=== PATIENT | male | born 1965 | race Caucasian/White ===

== ENCOUNTER 2019-03-05 19:11 | Emergency (ER) | payer OTHER ==
[2019-03-05 19:33] VITALS: BP 132/82
--- NOTE | 2019-03-05 19:41 | UC ---
Abdominal Pain Male HPI - HPI Summary HPI Summary: 53-year-old male presents with 2 week history of right thoracic back pain. States the pain initially felt like an insect bite but is progressively been worsening. On 03/01/2019 states the pain started radiating straight through to his right upper abdomen. States the pain worsens with movement. States it is especially bad when he is riding in the car and hits a pot hole or bump in the road. He has taken ibuprofen a couple of occasions with some improvement in the pain. He does note he has had an occasional nonproductive cough. Denies fever, chills, rash, diaphoresis, chest pain, shortness of breath, nausea, vomiting, diarrhea, dysuria, frequency, urgency, or hematuria. - History of Current Complaint Chief Complaint: UCAbdominalPain Stated Complaint: RIGHT SIDED ABD/BACK PAIN Hx Obtained From: Patient Pain Intensity: 8 - Allergies/Home Medications Allergies/Adverse Reactions: Allergies Allergy/AdvReac Type Severity Reaction Status Date / Time No Known Allergies Allergy Verified 03/05/19 19:33 PMH/Surg Hx/FS Hx/Imm Hx Previously Healthy: Yes - Denies significant PMH - Surgical History Surgical History: Yes Surgery Procedure, Year, and Place: t/a as child - Family History Known Family History: Positive: Non-Contributory - Social History Occupation: Employed Full-time Lives: With Family Alcohol Use: None Substance Use Type: None Smoking Status (MU): Former Smoker Review of Systems All Other Systems Reviewed And Are Negative: Yes Constitutional: Negative: Fever, Chills Skin: Negative: Rash ENT: Negative: Sore Throat, Ear Ache, Nasal Discharge, Sinus Congestion, Sinus Pain/Tenderness Respiratory: Positive: Cough. Negative: Shortness Of Breath Cardiovascular: Negative: Palpitations, Chest Pain Gastrointestinal: Positive: Abdominal Pain. Negative: Vomiting, Diarrhea, Nausea Genitourinary: Negative: Dysuria, Hematuria, Frequency, Urgency Motor: Negative: Weakness Neurovascular: Negative: Decreased Sensation Musculoskeletal: Positive: Other: - Back pain - See HPI Neurological: Positive: Negative Is Patient Immunocompromised?: No Physical Exam - Summary Physical Exam Summary: GENERAL APPEARANCE: Well developed, well nourished, alert and cooperative, and appears to be in no acute distress. EYES: Conjunctiva clear. No drainage. EARS: External auditory canals and tympanic membranes clear, hearing grossly intact. NOSE: No nasal discharge. THROAT: Pharynx normal No tonsilar inflammation, swelling, exudate, or lesions. Uvula midline. Oral cavity normal. Teeth and gingiva in good general condition. NECK: Neck supple, non-tender without lymphadenopathy. CARDIAC: Normal S1 and S2. No S3, S4 or murmurs. Rhythm is regular. There is no peripheral edema, cyanosis or pallor. Extremities are warm and well perfused. Capillary refill is less than 2 seconds. Peripheral pulses intact. LUNGS: Clear to auscultation without rales, rhonchi, wheezing or diminished breath sounds. ABDOMEN: Positive bowel sounds. Soft, nondistended, nontender. No guarding or rebound. No masses or hepatosplenomegally. MUSKULOSKELETAL: ROM intact to all extremities. No joint erythema or tenderness. Normal muscular development. Normal gait. BACK: Examination of the spine reveals normal gait and posture, no spinal deformity or tenderness, decreased range of motion or muscular spasm. SKIN: Skin normal color, texture and turgor with no lesions or eruptions. Triage Information Reviewed: Yes Vital Signs: Initial Vital Signs Temp 98.4 F 03/05/19 19:22 Pulse 87 03/05/19 19:22 Resp 20 03/05/19 19:22 BP 132/82 03/05/19 19:22 Pulse Ox 100 03/05/19 19:22 Vital Signs Reviewed: Yes Abd Pain Male Course/Dx - Course Course Of Treatment: 53-year-old male presents with 2 week history of right thoracic back pain. States the pain initially felt like an insect bite but is progressively been worsening. On 03/01/2019 states the pain started radiating straight through to his right upper abdomen. States the pain worsens with movement. States it is especially bad when he is riding in the car and hits a pot hole or bump in the road. He has taken ibuprofen a couple of occasions with some improvement in the pain. He does note he has had an occasional nonproductive cough. Denies fever, chills, rash, diaphoresis, chest pain, shortness of breath, nausea, vomiting, diarrhea, dysuria, frequency, urgency, or hematuria. Afebrile. Mildly hypertensive otherwise vital signs stable. Exam was overall unremarkable except for some paraspinous tenderness of the thoracic back however patient is very stoic and appeared to be in more discomfort than reported grimacing with any kind of movement. Uczki-ae-hrul urinalysis showed trace glucose and was otherwise normal. Two-view chest x-ray showed no acute cardiopulmonary pathology. I discussed with the patient the broad differential for his symptoms including gallbladder disease, liver disease, pancreatitis, pneumonia, herpes zoster, and musculoskeletal pain as well as our limitations for evaluating these causes at this facility. Considering the patient's progressively worsening symptoms and has evident discomfort I am recommending further evaluation in the emergency room at this time. Patient is agreeable to this and is electing to transfer via private vehicle. - Differential Dx/Clinical Impression Differential Diagnosis/HQI/PQRI: Appendicitis, Gall Bladder Disease, Hepatitis, Pancreatitis, Pneumonia, Ureteral Stone, Urinary Tract Infection Provider Diagnosis: Right upper quadrant abdominal pain, Right-sided thoracic back pain Discharge - Sign-Out/Discharge Documenting (check all that apply): Patient Departure All imaging exams completed and their final reports reviewed: No - Discharge Plan Condition: Stable Disposition: HOME-RECOMMEND TO ED Patient Education Materials: Acute Abdominal Pain (ED), Back Pain (ED) Referrals: Janessa MARTÍNEZ,Nolan Marques [Primary Care Provider] - Additional Instructions: The urine test performed in the clinic today showed some trace glucose and was otherwise normal. The chest x-ray was also normal. Considering the duration and progressive worsening of your pain I am recommending that you be further evaluated in the emergency room at this time. Go directly to the [facility] emergency room from here. Do not eat or drink anything until you have been evaluated. - Billing Disposition and Condition Condition: STABLE Disposition: Home-Recommend to ED
--- NOTE | 2019-03-06 13:46 | UC ---
- Progress Note Progress Note: Patient Name: JAIR BUI Medical Record#: [id number] Ordering Physician: Richard Tadeo NP Acct.#: [id number] : 1965 Age: 53 Sex: M [place] [facility] [place]: 03/05/192002 ADM Status: DEP ER Order Information: CHEST PA & LAT 2 VWS Accession Number: [id number] CPT: 21388 INDICATION: Right posterior chest pain COMPARISON: Most recent comparison chest x-rays dated February 24, 2013 TECHNIQUE: PA and lateral views of the chest were obtained. FINDINGS: The heart and mediastinum are normal in size and contour. The lungs are grossly clear. There is no evidence of large pleural effusion. Visualized bones are normal for the patient's age. There is no radiographic evidence of free air beneath the diaphragm IMPRESSION: No radiographic evidence of acute cardiopulmonary disease. R0 Preliminary Imaging Read R0 <Electronically signed by Damian Lopes MD in OV> 03/06/19752 Dictated By: Damian Lopes MD Dictated Date/Time: 03/06/19752 Transcribed Date/Time: 03/06/19752 Copy to: CC:Nolan MARTÍNEZ; Richard Tadeo NP; Eb Almeida MD Imaging - [facility] [place] [address] [place] [address] ph ([phone]) ph ([phone]) ph ([phone]) This report is only to be considered final once signed by the Provider(s) as displayed in the "<Electronically Signed by >" field (s). Absence of a signature indicates the report is in a draft status and still needs to be finalized. In the event this document was created by someone other than the signing Provider, the individual initiating the document will be listed in the "Entered by:" or "Dictated by:" casillas. 1 of 2 Course/Dx - Diagnoses Provider Diagnoses: Right upper quadrant abdominal pain, Right-sided thoracic back pain Discharge - Sign-Out/Discharge Documenting (check all that apply): Post-Discharge Follow Up All imaging exams completed and their final reports reviewed: Yes - Discharge Plan Condition: Stable Disposition: HOME-RECOMMEND TO ED Patient Education Materials: Acute Abdominal Pain (ED), Back Pain (ED) Referrals: Janessa MARTÍNEZ,Nolan Marques [Primary Care Provider] - Additional Instructions: The urine test performed in the clinic today showed some trace glucose and was otherwise normal. The chest x-ray was also normal. Considering the duration and progressive worsening of your pain I am recommending that you be further evaluated in the emergency room at this time. Go directly to the [facility] emergency room from here. Do not eat or drink anything until you have been evaluated. - Billing Disposition and Condition Condition: STABLE Disposition: Home-Recommend to ED
== END 2019-03-05 20:25 | disposition home health service (06) ==
LOC: UCCORT 19:11
DX: R10.11 Right upper quadrant pain (principal); M54.6 Pain in thoracic spine; R05 Cough; Z87.891 Personal history of nicotine dependence
CPT/HCPCS: 71046; 81003; 99212; G0463

== ENCOUNTER 2019-09-02 11:02 | Emergency (ER) | payer OTHER ==
[2019-09-02] MEDS ORDERED: NS 0.9% 1000 ML** 1,000 ML IV ONE ×2 (11:25→15:14)
[2019-09-02] MEDS ORDERED: Ondansetron INJ* 2 MG/ML VIAL IV ONE (11:25)
--- NOTE | 2019-09-02 11:32 | ED ---
GI/ HPI - HPI Summary HPI Summary: Patient is a 54 y/o M presenting to [facility] with complaints of RUQ pain and N/V/ D. He states "it feels like something is twisted in here" while pointing to RUQ. Abdominal pain has been present for the past few days. He states that last night, 09/01/19, he became nauseous and had onset of vomiting. This morning, , he had onset of diarrhea. He describes vomit as looking and smelling similar to diarrhea. Diarrhea is described as watery. Patient denies Hx of SBO. Subjective fever, dry mouth are also noted, patient states "I soaked through pillows last night". He denies CP and SOB. Patient reports that "everything" has been feeling swollen but denies focal edema. He denies Hx of HTN and diabetes but endorses Hx of Lyme disease and shingles. He denies tobacco, alcohol and substance usage. In room, vitals are pulse 120, o2 94 on RA, pulse 128/88. Home medications and allergies are reviewed. - History of Current Complaint Chief Complaint: EDNauseaVomitDiarrh Time Seen by Provider: 09/02/19 11:14 Stated Complaint: GENERAL ILLNESS Hx Obtained From: Patient Onset/Duration: Started Hours Ago - N/V/D, Started Days Ago - RUQ pain, Still Present Timing: Constant, Lasting Days - RUQ pain Current Severity: Moderate Pain Intensity: 6 Location of Pain: RUQ Pain Characteristics: Other: - twisting Associated Signs and Symptoms: Positive: Nausea, Vomiting, Diarrhea, Diaphoresis , Fever - subjective, temp is 100.1 F, Abdominal Pain, Other: - positive - dry mouth, swelling; negative - SOB. Negative: Chest Pain - Allergy/Home Medications Allergies/Adverse Reactions: Allergies Allergy/AdvReac Type Severity Reaction Status Date / Time No Known Allergies Allergy Verified 03/05/19 19:33 PMH/Surg Hx/FS Hx/Imm Hx Endocrine/Hematology History: Denies: Hx Diabetes Cardiovascular History: Denies: Hx Hypertension - Surgical History Surgery Procedure, Year, and Place: t/a as child Infectious Disease History: No Infectious Disease History: Reports: History Other Infectious Disease - lyme Denies: Traveled Outside the [place] in Last 30 Days - Family History Known Family History: Negative: Cardiac Disease, Hypertension, Diabetes - Social History Alcohol Use: None Substance Use Type: Reports: None Smoking Status (MU): Former Smoker Review of Systems Positive: Fever - subjective, on vitals, temp 100.1 F , Skin Diaphoresis ENT: Other - positive - dry mouth Negative: Chest Pain Negative: Shortness Of Breath Positive: Abdominal Pain, Vomiting, Diarrhea, Nausea Positive: Edema All Other Systems Reviewed And Are Negative: Yes Physical Exam - Summary Physical Exam Summary: Constitutional: Well-developed, Well-nourished, Alert. (-) Distressed Skin: Warm, Dry HENT: Normocephalic; Atraumatic Eyes: Conjunctiva normal Neck: Musculoskeletal ROM normal neck. (-) JVD, (-) Stridor, (-) Tracheal deviation Cardio: Rhythm regular, rate normal, Heart sounds normal; Intact distal pulses; Radial pulses are 2+ and symmetric. (-) Murmur Pulmonary/Chest wall: Effort normal. (-) Respiratory distress, (-) Wheezes, (-) Rales Abd: Soft, (+) RUQ tenderness, (-) Distension, (-) Guarding, (-) Rebound Musculoskeletal: (-) Edema Lymph: (-) Cervical adenopathy Neuro: Alert, Oriented x3 Psych: Mood and affect Normal Triage Information Reviewed: Yes Vital Signs On Initial Exam: Initial Vitals Temp Pulse Resp BP Pulse Ox 100.1 F 115 16 128/88 95 09/02/19 11:06 09/02/19 11:06 09/02/19 11:06 09/02/19 11:06 09/02/19 11:06 Vital Signs Reviewed: Yes Procedures - Sedation Patient Received Moderate/Deep Sedation with Procedure: No Diagnostics - Vital Signs Vital Signs Temp Pulse Resp BP Pulse Ox 09/02/19 11:06 100.1 F 115 16 128/88 95 - Laboratory Result Diagrams: 09/02/19 11:40 09/02/19 11:40 Lab Statement: Any lab studies that have been ordered have been reviewed, and results considered in the medical decision making process. - CT ABD/PEL CT CT Interpretation Completed By: Radiologist Summary of CT Findings: IMPRESSION: 1. NO EVIDENCE FOR ACUTE FINDING. 2. HEPATOMEGALY AND HEPATIC STEATOSIS, UNCHANGED. 3. SPLENOMEGALY, UNCHANGED. THIS REPORT WAS REVIEWED BY DR. KNIGHT Re-Evaluation - Re-Evaluation First Eval Re-Evaluation Time: 15:14 Comment: Results of labs and tests were discussed so far. Patient to be given another liter of NS and discharged to home. GIGU Course/Dx - Course Course Of Treatment: Patient is here with vomiting and diarrhea. Patient feels like he vomited diarrhea. Patient's of her had a bowel traction. Patient a CT scan showed no evidence of Valtrex for any acute abnormality. Patient had lab work which was grossly unremarkable. Patient was tachycardic and appeared dehydrated on my exam. Patient is given 2 L of IV fluid and by mouth fluids with improvement in his heart rate. Patient is discharged with Bentyl and Zofran - Diagnoses Provider Diagnoses: Abdominal pain, Vomiting, Diarrhea Discharge ED - Sign-Out/Discharge Documenting (check all that apply): Patient Departure - discharge - Discharge Plan Condition: Stable Disposition: HOME Prescriptions: Dicyclomine CAP* [Bentyl CAP*] 10 mg PO TID PRN #20 cap PRN Reason: abdominal cramping Ondansetron ODT TAB* [Zofran 4 MG Odt TAB*] 4 mg PO Q8H PRN #12 tab.odt PRN Reason: Vomiting Patient Education Materials: Acute Nausea and Vomiting (ED), Acute Diarrhea (ED ), Abdominal Pain (ED) Referrals: Nolan Riddle PA [Primary Care Provider] - 3 Days Additional Instructions: Take Bentyl and Zofran as prescribed. Stay hydrated with Pedialyte. Follow up with your Primary Care Physician within 1-3 days. Return to ED for any concerning symptoms. - Billing Disposition and Condition Condition: STABLE Disposition: Home - Attestation Statements Document Initiated by Aurora: Yes Documenting Scribe: FRANCISCO JACQUES Provider For Whom Aurora is Documenting (Include Credential): SHERMAN KNIGHT MD Scribe Attestation: FRANCISCO Ureña, scribed for SHERMAN KNIGHT MD on 09/02/19 at 1654. Scribe Documentation Reviewed: Yes Provider Attestation: The documentation as recorded by the FRANCISCO urrutia accurately reflects the service I personally performed and the decisions made by me, SHERMAN KNIGHT MD Status of Scribe Document: Viewed
[2019-09-02 12:06] LABS: ABS Lymphocytes 0.4 10^3/ul (1.0-4.8); ABS Monocytes 0.9 10^3/ul (0-0.8); ABS Neutrophils 7.4 10^3/ul (1.5-7.7); Eosinophil % 0.4 %; Hematocrit 46 % (42-52); Hemoglobin 15.8 g/dL (14.0-18.0); Lymphocyte % 4.7 %; Mean Corpuscular HGB Conc 34 g/dL (31-36); Mean Corpuscular Hemoglobin 30 pg (27-31); Mean Corpuscular Volume 86 fL (80-94); Mean Platelet Volume 8.6 fL (7.4-10.4); Platelet Count 159 10^3/uL (150-450); Red Blood Count 5.37 10^6 /uL (4.18-5.48); Red Cell Distribution Width 13 % (10-15); White Blood Count 8.7 10^3/uL (3.5-10.8)
[2019-09-02 12:22] LABS: Albumin 4.1 g/dL (3.2-5.2); Albumin/Globulin Ratio 1.5 (1-3); BUN/Creatinine Ratio 17.5 (8-20); Calcium 8.7 mg/dL (8.6-10.3); EGFR African American 91.8 (>60); EGFR Non-African American 75.8 (>60); Globulin 2.8 g/dL (2-4); Potassium 3.8 mmol/L (3.5-5.0); Total Bilirubin 0.7 mg/dL (0.2-1.0); Total Protein 6.9 g/dL (6.4-8.9)
[2019-09-02] MEDS ORDERED: Iohexol 300* (CONTRAST) 10 ML SDV IV ONE (13:47)
[2019-09-02] MEDS ORDERED: Acetaminophen TAB* 325 MG PO ONE (15:14)
[2019-09-02 15:43] VITALS: BP 123/73
== END 2019-09-02 16:25 | disposition home or self-care (01) ==
LOC: ED 11:02
DX: R10.9 Unspecified abdominal pain (principal); R11.10 Vomiting, unspecified; R19.7 Diarrhea, unspecified; Z87.891 Personal history of nicotine dependence
CPT/HCPCS: 36415; 74177; 80053; 83690; 85025; 96361; 96374; 99282; A9270-GY; J2405; Q9967